=== PATIENT | female | born 2000 | race Caucasian/White ===

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

== ENCOUNTER 2020-03-07 12:28 | Emergency (ER) | payer OTHER ==
[~2020-03-07] VITALS: Ht 165.1 cm; Wt 63.8 kg
[~2020-03-07 12:28] MED LIST: ONDA4TAB12 PO
--- NOTE | 2020-03-07 12:55 | PHYS DOC ---
Past History Past Medical History: Seizure Past Surgical History: No Surgical History Smoking: Non-smoker Alcohol Use: None Drug Use: None General Adult EDM: Chief Complaint: SEIZURE HPI: HPI: Patient is a 19-year-old female who presents to the emergency department for evaluation. She states for the past month, she has been having "episodes", where she will have generalized shaking, and feel like her eyes are going to roll back in her head. She states that she is calling these episodes "seizures", although she has not had a generalized tonic-clonic seizure or loss of consciousness with any of these episodes. She states that most of the time these episodes are triggered by anxiety, but not all the time. She states she came into the emergency department today because she felt like she was going to have another episode. She denies any pain, occluding any headache, vision changes, numbness, or weakness. She states that she did have seizures as a child, but has not had a seizure in several years until about a month ago when these episodes started, and is not currently under the care of a neurologist. She does not currently take any seizure medication. Review of Systems: Review of Systems: Constitutional: Denies fever or chills Eyes: Denies change in visual acuity HENT: Denies nasal congestion or sore throat Respiratory: Denies cough or shortness of breath Cardiovascular: Denies chest pain or edema GI: Denies abdominal pain, nausea, vomiting, bloody stools or diarrhea : Denies dysuria Musculoskeletal: Denies back pain or joint pain Integument: Denies rash Neurologic: Denies headache, focal weakness or sensory changes Endocrine: Denies polyuria or polydipsia Lymphatic: Denies swollen glands Psychiatric: Denies depression or anxiety Heart Score: Risk Factors: Risk Factors: DM, Current or recent (<one month) smoker, HTN, HLP, family history of CAD, obesity. Risk Scores: Score 0 - 3: 2.5% MACE over next 6 weeks - Discharge Home Score 4 - 6: 20.3% MACE over next 6 weeks - Admit for Clinical Observation Score 7 - 10: 72.7% MACE over next 6 weeks - Early Invasive Strategies Allergies: Allergies: Allergies Coded Allergies Type Severity Reaction Last Updated Verified adhesive tape Allergy Unknown 03/04/19 Yes Physical Exam: PE: PHYSICAL EXAM: CONSTITUTIONAL: Well developed, well nourished HEAD: normocephalic, atraumatic EENT: PERRL, EOMI. Conjunctivae normal color, sclerae non-icteric; moist mucous membranes. NECK: Supple, non-tender; no meningismus. LUNGS: Lungs CTA, breathing even and unlabored. Normal air movement. HEART: Regular rate and rhythm, no murmur CHEST: No deformity; non-tender ABDOMEN: The abdomen is soft, and non-tender, no masses or bruits. EXTREM: Normal ROM; no deformity, no calf tenderness. Normal pulses palpable in all extremities. There is no pedal edema. SKIN: No rash; no diaphoresis NEURO: Alert; normal speech and cognition; CN's grossly intact; strength grossly intact without focal deficit. BACK: No CVA TTP. Current Patient Data: Labs: Laboratory Tests Test 03/07/20 12:36 03/07/20 12:50 03/07/20 13:04 Urine Opiates Screen Neg Urine Methadone Screen Neg Urine Barbiturates Neg Urine Phencyclidine Screen Neg Urine Amphetamine/Methamphetamine Neg Urine Benzodiazepines Screen Neg Urine Cocaine Screen Neg Urine Cannabinoids Screen Neg Urine Ethyl Alcohol Neg White Blood Count 4.3 x10^3/uL Red Blood Count 4.00 x10^6/uL Hemoglobin 11.1 g/dL Hematocrit 34.0 % Mean Corpuscular Volume 85 fL Mean Corpuscular Hemoglobin 28 pg Mean Corpuscular Hemoglobin Concent 33 g/dL Red Cell Distribution Width 15.8 % Platelet Count 242 x10^3/uL Neutrophils (%) (Auto) 57 % Lymphocytes (%) (Auto) 34 % Monocytes (%) (Auto) 7 % Eosinophils (%) (Auto) 2 % Basophils (%) (Auto) 0 % Neutrophils # (Auto) 2.5 x10^3uL Lymphocytes # (Auto) 1.5 x10^3/uL Monocytes # (Auto) 0.3 x10^3/uL Eosinophils # (Auto) 0.1 x10^3/uL Basophils # (Auto) 0.0 x10^3/uL Sodium Level 139 mmol/L Potassium Level 3.5 mmol/L Chloride Level 105 mmol/L Carbon Dioxide Level 25 mmol/L Anion Gap 9 Blood Urea Nitrogen 6 mg/dL Creatinine 0.9 mg/dL Estimated GFR (Cockcroft-Gault) 80.7 BUN/Creatinine Ratio 7 Glucose Level 80 mg/dL Calcium Level 8.5 mg/dL Magnesium Level 1.9 mg/dL Total Bilirubin 0.2 mg/dL Aspartate Amino Transf (AST/SGOT) 12 U/L Alanine Aminotransferase (ALT/SGPT) 15 U/L Alkaline Phosphatase 48 U/L Total Protein 7.4 g/dL Albumin 3.3 g/dL Albumin/Globulin Ratio 0.8 Bedside Urine HCG, Qualitative hcg negative EKG: EKG: Normal sinus rhythm with a normal rate, normal axis, normal intervals, there are no acute ischemic ST/T changes. [] Radiology/Procedures: Radiology/Procedures: PROCEDURE: CT HEAD WO CONTRAST STUDY: CT head without contrast INDICATION: Seizure-like activity. COMPARISON: None. TECHNIQUE: Axial CT imaging through the head without the use of intravenous contrast. Sagittal and coronal reformats were obtained. One or more of the following individualized dose reduction techniques were utilized for this examination: 1. Automated exposure control 2. Adjustment of the mA and/or kV according to patient size 3. Use of iterative reconstruction technique. FINDINGS: No acute intracranial hemorrhage. Maintained savage-white matter interface. No mass effect, midline shift or hydrocephalus. Unremarkable orbits and scalp. Intact calvarium. IMPRESSION: Unremarkable head CT.[] Course & Med Decision Making: Course & Med Decision Making Pertinent Labs and Imaging studies reviewed. (See chart for details) [] Patient remains stable. I discussed test results, the need for close follow- up, and return precautions. I am not convinced that her episodes are neurologic in nature, I do suspect that there is more of a psychogenic component/anxiety component to these episodes. However she does report a history of epilepsy as a child and that does raise the possibility of neurogenic seizure activity. I will start her on a low-dose of an antiepileptic medication and stressed importance of close neurology follow-up. Return precautions were discussed. Dragon Disclaimer: Dragon Disclaimer: This electronic medical record was generated, in whole or in part, using a voice recognition dictation system. Departure Departure: Impression: Primary Impression: Seizure-like activity Disposition: 01 HOME/RESIDENCE PRIOR TO ADM Condition: STABLE Referrals: EDNA MARTINS MD (PCP) SHANIKA TOM MD Patient Instructions: Nonepileptic Seizures, Seizure, Adult Scripts Levetiracetam (KEPPRA) 250 Mg Tablet 1 TAB PO BID for - for 30 Days, #60 TAB 0 Refills Prov: LAINE JOHN MD 03/07/20 Justification of Admission: Justification of Admission: Justification of Admission Dx: N/A LAINE JOHN MD Mar 07, 2020 12:55
--- NOTE | 2020-03-07 13:25 | RAD ---
STUDY: CT head without contrast INDICATION: Seizure-like activity. COMPARISON: None. TECHNIQUE: Axial CT imaging through the head without the use of intravenous contrast. Sagittal and coronal reformats were obtained. One or more of the following individualized dose reduction techniques were utilized for this examination: 1. Automated exposure control 2. Adjustment of the mA and/or kV according to patient size 3. Use of iterative reconstruction technique. FINDINGS: No acute intracranial hemorrhage. Maintained savage-white matter interface. No mass effect, midline shift or hydrocephalus. Unremarkable orbits and scalp. Intact calvarium. IMPRESSION: Unremarkable head CT. Electronically signed by: PARADISE MCCORD MD (03/07/2020 1:22 PM) [id number]
[2020-03-07 13:31] LABS: BASO % 0 % (0-3); EOS # 0.1 x10^3/uL (0.0-0.7); EOS % 2 % (0-3); HEMOGLOBIN 11.1 g/dL (12.0-15.5); LYMPH # 1.5 x10^3/uL (1.0-4.8); LYMPH % 34 % (24-48); MEAN CORPUSCULAR HEMOGLOBIN 28 pg (25-35); MEAN CORPUSCULAR HGB CONC 33 g/dL (31-37); MEAN CORPUSCULAR VOLUME 85 fL (79-100); MONO # 0.3 x10^3/uL (0.0-1.1); MONO % 7 % (0-9); NEUT # 2.5 x10^3uL (1.8-7.7); NEUT % 57 % (31-73); PLATELET COUNT 242 x10^3/uL (140-400); RED CELL DISTRIBUTION WIDTH 15.8 % (11.5-14.5); WHITE BLOOD COUNT 4.3 x10^3/uL (4.0-11.0)
[2020-03-07 13:39] VITALS: BP 112/73
[2020-03-07 13:39] LABS: CALCIUM 8.5 mg/dL (8.5-10.1); CREATININE 0.9 mg/dL (0.6-1.0); GFR 80.7; POTASSIUM 3.5 mmol/L (3.5-5.1)
[2020-03-07 13:43] LABS: AMPHETAMINE/METHAMPHETAMINE NEG (NEG); BARBITURATES NEG (NEG); BENZODIAZEPINES NEG (NEG); CANNABINOIDS NEG (NEG); COCAINE NEG (NEG); METHADONE NEG (NEG); OPIATES NEG (NEG); PHENCYCLIDINE NEG (NEG)
[2020-03-07 13:46] LABS: ALBUMIN 3.3 g/dL (3.4-5.0); ALBUMIN/GLOBULIN RATIO 0.8 (1.0-1.7); MAGNESIUM 1.9 mg/dL (1.8-2.4); TOTAL BILIRUBIN 0.2 mg/dL (0.2-1.0); TOTAL PROTEIN 7.4 g/dL (6.4-8.2)
[2020-03-07] MEDS ORDERED: LEVE250T30 PO (13:55)
--- NOTE | 2020-03-07 18:08 | EKG ---
[address] [address] Test Date: 2020-03-07 Test Time: 12:59:53 Pat Name: FABRICE COELLO Department: Room: Gender: F Video Editor: : 2000 Requested By: LAINE JOHN Order Number: [id number] Reading MD: Measurements Intervals [place] Rate: 67 P: 0 AR: 132 QRS: 51 QRSD: 86 T: 22 QT: 394 QTc: 419 Interpretive Statements SINUS RHYTHM NORMAL ECG RI6.02 No previous ECG available for comparison
== END 2020-03-07 13:59 | disposition home or self-care (01) ==
LOC: ER 12:28
DX: R56.9 Unspecified convulsions (principal); Z88.8 Allergy status to other drugs, medicaments and biological substances
CPT/HCPCS: 36415; 70450; 80053; 80307; 81025; 83735; 85025; 93005; 99285-25